=== PATIENT | female | born 1950 | race Caucasian/White ===

== ENCOUNTER → 2018-07-26 | Outpatient (CLI) | payer OTHER ==
[~2018-07-26] VITALS: Ht 177.8 cm; Wt 99.8 kg
[~2018-07-26] MED LIST: ASPIR 8181 MG PO; CALCIUM 500 +1 EAC5 PO; CORTEF5 MG PO; FLECAINIDE ACET50 M2 PO; FLORINEF ACETA0.1 MG PO; LIPITOR10 MG PO; NITROSTAT0.4 M1 SUBLING; OMEPRAZOLE40 MG PO; PROLIA60 MG/1 ML INJECTION; SYNTHROID50 MCG PO; TOPROL XL25 MG PO
--- NOTE | ~2018-07-26 | HPC ---
[facility] [address] [address] PAIN MANAGEMENT CONSULTATION Name: JESUSITA CLAYTON [facility] [id number] Admission: 07/26/18 Attend Phys: Jt Acosta DO Discharge: Date of : 50 Report #: [id number] THIS REPORT FOR: //name// CC: [facility] physician/PCP Elayne Acosta DATE OF SERVICE: 07/26/2018 CHIEF COMPLAINT: Right upper buttock and low back pain. HISTORY OF PRESENT ILLNESS: As you know, the patient is a 67-year-old female who reports longstanding history of right low back and right upper buttock pain. The patient indicates pain began in 2017. She denies specific injury or trauma that may have led to symptom occurrence. She has sought evaluation through her primary care physician, ultimately being referred to Neurosurgery of [facility] where she saw Dr. Rachel on 07/14/2018. At that visit, the patient was evaluated and determined to be suffering from right SI joint dysfunction and was subsequently referred to our clinic to try SI joint injection under fluoroscopic guidance. The patient indicates pain is constant with intermittent exacerbations. She states the pain is stabbing in sensation. She places current pain score 10/10, daily average at 10/10, worst pain has been is 10/10. The patient states that certain activities throughout the day exacerbate symptoms as do typical daily activities. She indicates hot pads and lying down tend to improve pain. She has been referred to our service by her Neurosurgery team to undergo right SI joint injection under fluoroscopic guidance to determine if symptoms could be improved. There is a possibility the patient is looking towards a fusion of the SI joint with Neurosurgery per the patient's report today. PAST MEDICAL HISTORY: 1. Hypertension. 2. Dyslipidemia. 3. Atrial fibrillation. 4. Gastroesophageal reflux disease. 5. Hypothyroidism. 6. History of myxomas. 7. Adrenal insufficiency. PAST SURGICAL HISTORY: 1. Heart surgery in 1974 and 1996 for myxoma excisions. 2. Total adrenalectomy in 1984. 3. Brain surgery in 1995. 4. Back surgery. [address] [address] PAIN MANAGEMENT CONSULTATION Name: JESUSITA CLAYTON Jodee Room #: REG DANIELA Schmidt#: [id number] Admission: 07/26/18 Attend Phys: Jt Acosta DO Discharge: Date of : 50 Report #: [id number] SOCIAL HISTORY: The patient denies tobacco, alcohol, IV or illicit drug use. She is retired out of the workforce since 10/2016. She is not receiving workmen's compensation nor is trying to obtain disability benefits. She is not in litigation in regards to pain. She is accompanied by her , present in room today. REVIEW OF SYSTEMS: Positive for hearing loss with tinnitus, right low back pain, right upper buttock pain with paresthesias, hypothyroid, gastroesophageal reflux disease, atrial fibrillation on chronic anticoagulation, adrenal insufficiency. All other review of systems negative per 12-point review of systems other than those listed in history of present illness. Pain impact score 60/70 indicating severe, near complete interference of daily activities secondary to pain. ALLERGIES: No known drug allergies. CURRENT MEDICATIONS: Aspirin 81 mg per day, calcium carbonate 1 tab per day, Florinef 0.1 mg 4 times a week, Cortef 5 mg 2 in the morning and 2 at night, Synthroid 50 mcg per day, metoprolol 25 mg 2 tabs per day, nitroglycerin 0.4 mg p.r.n. chest pain, omeprazole 40 mg per day, flecainide 50 mg per day, atorvastatin 10 mg twice a week, Prolia one injection every 6 months. IMAGING: MRI of the lumbar spine obtained on 07/20/2018 shows T12-L1, L1-L2, L2-L3 unremarkable. L3-L4, mild facet arthropathy, mild annular disk bulge, ligamentum flavum hypertrophy, flattening of ventral thecal sac, mild narrowing of the neural foramen, thecal sac measuring 1.1 cm, AP. L4-L5, circumferential disk bulge, bilateral facet arthropathy, prominent ligamentum flavum hypertrophy, flattening of the ventral thecal sac with AP diameter of 1 cm. L5-S1, degeneration of the disk, abnormal signal within the disk noted, circumferential bulging of the annulus, ligamentum flavum hypertrophy, facet hypertrophy, narrowing of the neural foramen, lateral recess thecal sac measures 1.1 cm. PQRS: The patient has osteoarthritic changes on the lumbar spine, no rheumatoid arthritis. She is placing pain intensity of 10/10. She is a fall risk, but has not had fallen in the last 3 months. She is to be on a blood thinner, but has not taken the medication in 29 days. She is treated for hypertension. She is not on chronic opioids. She has a moderate risk for opioid addiction. Pain impact score is 60/70 indicating near complete interference of daily activities secondary to pain. PHYSICAL EXAMINATION: VITAL SIGNS: Blood pressure 127/84, pulse 74, respiratory rate 16 and unlabored. The patient is 100% on room air. Height 5 feet 10 inches tall, weight 220 pounds, BMI calculated 31.6. [address] [address] PAIN MANAGEMENT CONSULTATION Name: JESUSITA CLAYTON Room #: REG CL Forets#: [id number] Admission: 07/26/18 Attend Phys: Jt Acosta DO Discharge: Date of : 50 Report #: [id number] GENERAL: Well-developed, well-nourished, well-hydrated exogenously obese 67-year-old female, appears her stated age. She is placing current pain score 10/10. HEENT: Normocephalic, atraumatic. Pupils equal, round, reactive to light. Extraocular muscles are intact. Speech is fluent. The patient deemed a fair historian. LUNGS: Clear, no wheeze, rhonchi or rales. CARDIOVASCULAR: Irregularly irregular. EXTREMITIES: Show no clubbing, no cyanosis and no edema. ABDOMEN: Soft, obese and nontender. MUSCULOSKELETAL: Lower extremity strength appears equal and symmetrical 5/5. Pain is elicited with hip flexion, knee extension on the right when compared to the left. Deep tendon reflexes 2+/4 at patella and Achilles. Babinski's negative. Kaden's negative. Straight leg raising to 60 degrees, negative bilaterally. Gait and station are normal. She is able to toe walk, heel walk and tandem gait without complication. She has palpatory tenderness over the SI joint on the right compared to the left. Deep palpation of the area causes intensification of pain. ASSESSMENT: 1. Right sacroiliac joint dysfunction. 2. Right sacroiliac joint pain. 3. Atrial fibrillation without anticoagulation. 4. Chronic intractable pain. PLAN: 1. The patient has been referred to our service by her Neurosurgery physician, Dr. Rachel, for evaluation for right SI joint dysfunction. It does appear the patient is suffering from right sacroiliac joint dysfunction based on physical exam and history provides and provocating factors that exacerbate symptoms. We discussed with the patient the treatment option for SI joint pain today. The following was discussed with the patient on treatments available. We discussed physical therapy, stretching exercise, core strengthening and a concerted effort at weight loss. We discussed medication management adding a nonsteroidal anti-inflammatory on a consistent basis along with suggestions for treatment of a low dose opioid like medication such as tramadol. We discussed intraarticular SI joint injections and ultimately surgical fusion of the sacroiliac joint. After reviewing risks and benefits of all proposed treatment options, the patient chose to undergo right sacroiliac joint injection under fluoroscopic guidance. 2. The patient was advised risks and benefits of a right sacroiliac joint injection. These risks include, but are not necessarily limited to, bleeding, bruising, infection, worsening pain, no relief of pain, also risk of temporary or permanent muscle weakness, temporary or permanent nerve damage, possible paralysis, joint destruction and . The patient [place] [address] PAIN MANAGEMENT CONSULTATION Name: JESUSITA CLAYTON Room #: REG DANIELA Schmidt#: [id number] Admission: 07/26/18 Attend Phys: Jt Acosta DO Discharge: Date of : 50 Report #: [id number] wished to proceed. 3. The patient and I had a very long discussion today about anticoagulation and the need for anticoagulation with atrial fibrillation. The patient was placed on a medication in the form of Eliquis by her human relations professor and base filler to address the waxing and waning atrial fibrillation and concern of a clot formation and ultimate stroke. The patient subsequently discontinued the Eliquis as it was costing her approximately $480-$500 per month. She did not make her human relations professor or base filler aware of this discontinuation of medication. I have taken the liberty of discussing this with the patient today. She is at extremely high risk for possible atrial clot and possible stroke. She needs to get on an anticoagulant immediately. I advised the patient to contact her human relations professor today and be placed on a new medication if necessary to continue anticoagulation. There is a strong likelihood the patient will need to return to undergo an echocardiogram to confirm that there is no clot within the left atrium before she initiates any treatment changes. I will defer to the Cardiology team to adjust her medications appropriately. She needs to be on this medication immediately. 4. We altered no medications at this time. The patient will continue current medical therapy as prior prescribed. 5. We will see the patient back in followup visit on an as-needed basis for possible next in the series of right SI joint injections. I did advise the patient if improvement is noted with the SI joint injections, but the symptoms are transient in nature, there is a likelihood the patient will need to be seen by Neurosurgery to have an SI joint fusion completed. This is the definitive treatment option if all conservative treatment options fail. 6. We wish to thank Dr. Scout Rachel for the opportunity to see the patient in consultation. We will keep you apprised of response to treatment as we address her right sacroiliac joint pain. Again, we wish to thank you for the opportunity to see the patient in consultation. By: 1212 [id number] Jt Acosta DO /nt
[2018-07-26 09:11] VITALS: BP 127/84
--- NOTE | 2018-07-26 09:25 | NUR ---
Pain Clinic Assessment: 1. History of Osteoarthritis: YES History of Rheumatoid Arthritis: 2. Height: 5 ft. 10 in. 177.8 cm. Weight: 220.0 lb. oz. 99.792 kg. Patient's BMI: 31.6 3. Vital Signs: BP: 127/84 Pulse: 74 Resp: 16 Temp: 02 Sat: 100 ECG Mon: 4. Pain Intensity: 10 5. Fall Risk: Dizziness: N Needs help standing or walking: N Fallen in the last 3 months: N Fall risk comments: 6. Patient on Blood Thinner: None 7. History of Hypertension: Y 8. Opioid Therapy greater than 6 weeks: N Opiate Contract Signed: 9. Risk Assessment Tool Provided: 10. Functional Assessment Tool: 11. Recreational Drug Use: Never Drug Type: Tobacco Use: Never Smoker Tobacco Type: Amount or Packs/day: How Many Years: Alcohol Use: Frequency: Quant:
== END | disposition home or self-care (01) ==
LOC: PAIN 06:40
DX: M53.3 Sacrococcygeal disorders, not elsewhere classified (principal); G89.29 Other chronic pain; I10 Essential (primary) hypertension; I48.91 Unspecified atrial fibrillation; E03.9 Hypothyroidism, unspecified; K21.9 Gastro-esophageal reflux disease without esophagitis; E78.5 Hyperlipidemia, unspecified; E66.09 Other obesity due to excess calories; Z98.890 Other specified postprocedural states; Z68.31 Body mass index [BMI] 31.0-31.9, adult; Z79.01 Long term (current) use of anticoagulants; Z79.899 Other long term (current) drug therapy

== ENCOUNTER → 2018-08-30 | Outpatient (CLI) | payer OTHER ==
[~2018-08-30] VITALS: Ht 177.8 cm; Wt 99.8 kg
[2018-08-30 14:28] VITALS: BP 136/91
--- NOTE | 2018-08-30 14:46 | NUR ---
Pain Clinic Assessment: 1. History of Osteoarthritis: YES History of Rheumatoid Arthritis: 2. Height: 5 ft. 10 in. 177.8 cm. Weight: 220.0 lb. oz. 99.792 kg. Patient's BMI: 31.6 3. Vital Signs: BP: 136/91 Pulse: 76 Resp: 16 Temp: 02 Sat: 100 ECG Mon: 4. Pain Intensity: 7 5. Fall Risk: Dizziness: N Needs help standing or walking: N Fallen in the last 3 months: N Fall risk comments: 6. Patient on Blood Thinner: None 7. History of Hypertension: Y 8. Opioid Therapy greater than 6 weeks: N Opiate Contract Signed: 9. Risk Assessment Tool Provided: 10. Functional Assessment Tool: 11. Recreational Drug Use: Never Drug Type: Tobacco Use: Never Smoker Tobacco Type: Amount or Packs/day: How Many Years: Alcohol Use: Frequency: Quant:
--- NOTE | 2018-09-06 07:52 | HPC ---
[facility] [place] [place] [address] PAIN MANAGEMENT CONSULTATION Name: JESUSITA CLAYTON Room #: REG [facility]#: [id number] Admission: 08/30/18 ������������������ Attend Phys: Jt Acosta DO Discharge: ������������������ Date of : 50 Report #: [id number] THIS REPORT FOR: //name// CC: [facility] physician/PCP MD Jt Teresa DATE OF SERVICE: 08/30/2018 CHIEF COMPLAINT: Right upper buttock and posterolateral thigh pain. HISTORY OF PRESENT ILLNESS: As you know, the patient is a 67-year-old female who was referred to our service by her neurosurgeon, Dr. Elayne Rachel to trial a right SI joint injection under fluoroscopic guidance. The patient underwent that injection on 07/26/2018. She reports today a return of symptoms, for which she gives a pain level of 7/10. She indicates that the injection provided about 90% improvement in overall pain. Unfortunately, her symptoms have recurred. She returns requesting next in the series of right SI joint injections in hopes of improving symptoms. ALLERGIES: No reported drug allergies. CURRENT MEDICATIONS: Aspirin, calcium carbonate, Florinef, hydrocortisone, levothyroxine, metoprolol, nitroglycerin, omeprazole, flecainide, atorvastatin and Prolia. SOCIAL HISTORY: The patient denies tobacco, alcohol, IV or illicit drug use. She is retired and has been out of work for since 10/2016, not migratory worker's compensation, accompanied by her , present in room today. IMAGING: No new imaging available. PQRS: The patient has known osteoarthritic change in the lumbar spine, no rheumatoid arthritis. She is placing pain intensity today 7/10, not a fall risk, has not had a fall in the last 3 months. She is not on blood thinners. She has history of hypertension. She is not on any chronic opioid. She has pain impact score 60/70, severe, near complete interference of daily activities secondary to pain. PHYSICAL EXAMINATION: VITAL SIGNS: Blood pressure 136/91, pulse is 76, respiratory rate 16 and unlabored. The patient is 100% on room air. Height 5 feet 10 inches tall, weighs 220 pounds, BMI calculated 31.6. GENERAL: Well-developed, well-nourished, well-hydrated 67-year-old female, appearing her stated age. Pain is rated today at around 7/10. HEENT: Normocephalic and atraumatic. Pupils equal, round, reactive to light. [address] [address] PAIN MANAGEMENT CONSULTATION Name: JESUSITA CLAYTON Room #: REG [facility]#: [id number] Admission: 08/30/18 ������������������ Attend Phys: Jt Acosta DO Discharge: ������������������ Date of : 50 Report #: [id number] Extraocular muscles are intact. EXTREMITIES: Show no clubbing, no cyanosis, no edema. MUSCULOSKELETAL: Lower extremity strength symmetrical 5/5. Pain is elicited once again with deep palpation over the right SI joint. Hip flexion, knee extension on the right also intensify buttock and posterolateral thigh pain. Patellar reflexes are symmetrical, 2+/4 as is Achilles tendon reflexes. ASSESSMENT: 1. Right sacroiliac joint dysfunction. 2. Chronic intractable pain. PLAN: 1. The patient returns today in followup visit having noted excellent benefit with the initial SI joint injection on the right side per the request of her neurosurgeon, Dr. Elayne Rachel. Unfortunately, her symptoms have begun to return. She returns now with a pain level of 7/10. She has requested a repeat right SI joint injection to be performed today. Advised the patient of the risks and benefits of this procedure. States she understood and wished to proceed. 2. No medication changes made at today's visit. The patient will continue current medical therapy as previously prescribed. 3. We will see the patient back in followup visit on an as needed basis. Discussed the possible next in the series of SI joint injections. If the patient continues to experience good benefit for long-term therapy I would recommend continuing SI joint injections. If the symptoms continue to return surgical options may be necessary to address fusion of the SI joint. We will discuss this again in followup visit depending on the efficacy of today's injection. PROCEDURE NOTE DESCRIPTION OF PROCEDURE: Right SI joint injection under fluoroscopic guidance. This is the second procedure of the first series that the patient is undergoing. After obtaining written consent, the patient was taken back to the fluoroscopy suite and placed in a prone position with a pillow under the pelvis to decrease the lumbar lordosis. The skin of the gluteal-sacral area overlying the right sacroiliac joint was prepped and draped in an aseptic fashion. A medial to lateral oblique projection allowed separation of the anterior and posterior branches of the joint space. The skin and subcutaneous tissue overlying the target site of injection was anesthetized using 3 mL of 1% lidocaine. A 22-guage needle with a 3.5 inch tip was directed into the inferior aspect of the sacroiliac joint using a posterior approach. A bent giving way at the needle hub was noted once the dorsal sacroiliac and interosseous ligaments [address] [address] PAIN MANAGEMENT CONSULTATION Name: JESUSITA CLAYTON Room #: REG CLMiky Schmidt#: [id number] Admission: 08/30/18 ������������������ Attend Phys: Jt Acosta DO Discharge: ������������������ Date of : 50 Report #: [id number] were engaged. After negative aspiration for heme, a total of 0.5 mL of Omnipaque was injected, outlining the coin-shaped inferior recess of the joint. Provocation responses consisting of intense buttock pain were negative. After negative aspiration for heme, 3 mL of solution containing 1 mL 40 mg per mL, 40 mg total triamcinolone, 2 mL bupivacaine 0.5% was slowly injected. The needle was then retracted approximately mcfp and the needle track was flushed with 1 mL of 1% lidocaine. Needle was then removed. A sterile bandage was placed over the injection site. There were no new sensory deficits present in the lower extremities. The heart rate, pulse oximetry and blood pressure were continuously monitored after the procedure. There were no apparent complications. The patient tolerated the procedure well and was carefully escorted to the recovery room in stable condition. The VAS was 7/10 before the procedure and 0/10 ten minutes after the procedure. After meeting discharge criteria, the patient was discharged home. ��������������������������������������������� <ELECTRONICALLY SIGNED> ���������������������������������������� By: Jt Acosta DO ��������������������������������������������� 09/06/18 [id number] Jt Acosta DO /nt
== END | disposition home or self-care (01) ==
LOC: PAIN 06:50
DX: M53.3 Sacrococcygeal disorders, not elsewhere classified (principal); G89.29 Other chronic pain; I10 Essential (primary) hypertension; Z79.82 Long term (current) use of aspirin; Z79.899 Other long term (current) drug therapy

== ENCOUNTER → 2018-10-18 | Outpatient (CLI) | payer OTHER ==
[~2018-10-18] VITALS: Ht 177.8 cm; Wt 99.7 kg
[~2018-10-18] MED LIST changes: +ELIQUIS5 MG PO
--- NOTE | ~2018-10-18 | HPC ---
[address] [address] PAIN MANAGEMENT CONSULTATION Name: JESUSITA CLAYTON Room #: REG [facility] Roxana#: [id number] Admission: 10/18/18 ������������������ Attend Phys: Jt Acosta DO Discharge: ������������������ Date of : 50 Report #: [id number] THIS REPORT FOR: //name// CC: [facility] physician/PCP Elayne Acosta Primary Care Physician DATE OF SERVICE: 10/18/2018 CHIEF COMPLAINT: Right buttock pain and posterolateral thigh pain. HISTORY OF PRESENT ILLNESS: As you know, the patient is a 67-year-old female referred to our service by her neurosurgeon, Dr. Elayne Rachel to undergo right SI joint injections under fluoroscopic guidance in hopes of improving pain. The patient was seen in consultation on 08/03/2018 diagnosed with a right sacroiliac joint pain. We trialled medication management initially per the patient's request. She was seen in followup visit on 08/30/2018 where she finally underwent an injection of the right sacroiliac joint. She reported with that injection 100% improvement in overall pain lasting for up to 6 weeks. She returns today in followup visit with slow and progressive return of symptoms, now placing pain anywhere from 0 to 10/10 depending on activity. She discontinued her Eliquis in preparation for today's procedure. She has been off the Eliquis for 3 days. She returns to undergo next in the series of right sacroiliac joint injections under fluoroscopic guidance in hopes of improving pain. She denies new injury or trauma that may have led to symptom recurrence. ALLERGIES: No reported drug allergies. CURRENT MEDICATIONS: Aspirin, calcium carbonate, Florinef, hydrocortisone, levothyroxine, metoprolol, nitroglycerin, omeprazole, flecainide, atorvastatin, Prolia and Eliquis. SOCIAL HISTORY: The patient denies tobacco, alcohol or IV illicit drug use. She is retired. She has been out of work since 10/2016, not receiving workmen's compensation, accompanied by her present in room today. IMAGING: No new imaging available. 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 No rheumatoid arthritis, placing pain anywhere from 0-10/10 depending on activity. She is not a fall risk and has not had a fall in the last 3 months. She is on blood thinners, but discontinued the medication three days prior to undergo this injection. She has a history and treatment of hypertension, not on chronic opioids. She is placing pain impact score at 60/70, near complete interference of daily activities secondary to pain. [address] [address] PAIN MANAGEMENT CONSULTATION Name: JESUSITA CLAYTON Room #: REG [facility].#: [id number] Admission: 10/18/18 ������������������ Attend Phys: Jt Acosta DO Discharge: ������������������ Date of : 50 Report #: [id number] PHYSICAL EXAMINATION: VITAL SIGNS: Blood pressure 141/92, pulse 74, respiratory rate 16 and unlabored. The patient is 98% on room air. Height 5 feet 10 inches tall, weight 219.8 pounds, BMI calculated 31.5. GENERAL: Well-developed, well-nourished, well-hydrated 67-year-old female appearing her stated age, placing current pain score anywhere from 0-10/10. HEENT: Normocephalic, atraumatic. Pupils equal, round, reactive to light. Speech fluent. EXTREMITIES: Show no clubbing, no cyanosis, and no edema. MUSCULOSKELETAL: Lower extremity strength is symmetrical 5/5, muscle bulk and tone appears symmetrical in comparing left lower extremity to right. Seated straight leg raising negative. Supine straight leg raising negative. Nuzhat's test is negative. Modified Gaenslen's positive for axial low back pain. Deep palpation over the sacroiliac joint causes intensification of pain on the right, negative left. Sacral compression causes increased pain on the right consistent with right SI joint symptoms. ASSESSMENT: 1. Right sacroiliac joint dysfunction. 2. Chronic intractable pain. PLAN: 1. The patient returns today in followup visit having noted near 100% improvement in overall pain with the right sacroiliac joint injection provided in August and this lasted for up to 6 weeks. She returns today in followup visit requesting to undergo next in the series of right sacroiliac joint injections to address the patient's SI joint dysfunction. She has been advised risks and benefits of the procedure, states understood and wished to proceed. 2. No medication changes made at today's visit. The patient will continue current medical therapy as previously prescribed. 3. We will see the patient back in followup visit on an as needed basis for next in the series of SI joint injections. PROCEDURE NOTE DESCRIPTION OF PROCEDURE: Right sacroiliac joint injection under fluoroscopic guidance. This is the third procedure of the first series that the patient is undergoing. After obtaining written consent, the patient was taken back to the fluoroscopy suite and placed in a prone position with a pillow under the pelvis to decrease the lumbar lordosis. The skin of the gluteal-sacral area overlying the right sacroiliac joint was prepped and draped in an aseptic fashion. [address] [address] PAIN MANAGEMENT CONSULTATION Name: JESUSITA CLAYTON Room #: REG [facility]#: [id number] Admission: 10/18/18 ������������������ Attend Phys: Jt Acosta DO Discharge: ������������������ Date of : 50 Report #: [id number] A medial to lateral oblique projection allowed separation of the anterior and posterior branches of the joint space. The skin and subcutaneous tissue overlying the target site of injection was anesthetized using 3 mL of 1% lidocaine. A 22-gauge 3-1/2 inch needle with a bent tip was directed into the inferior aspect of the sacroiliac joint using a posterior approach. A ____ at the needle hub was noted once the dorsal sacroiliac and interosseous ligaments were engaged. After negative aspiration for heme, a total of 0.4 mL of Omnipaque was injected, outlining the coin-shaped inferior recess of the joint. Provocation responses consisting of intense buttock pain were negative. After negative aspiration for heme, 3 mL of a solution containing 1 mL 40 mg/mL, 40 mg total triamcinolone and 2 mL of bupivacaine 0.5% was slowly injected. The needle was then retracted approximately usp and the needle track was flushed with 1 mL of lidocaine 1%. Needle was then removed. A sterile bandage was placed over the injection site. There were no new sensory deficits present in the lower extremities. The heart rate, pulse oximetry and blood pressure were continuously monitored after the procedure. There were no apparent complications. The patient tolerated the procedure well and was carefully escorted to the recovery room in stable condition. The VAS was 0-10/10 before the procedure and 0/10 ten minutes after the procedure. After meeting discharge criteria, the patient was discharged home. ��������������������������������������������� ���������������������������������������� By: ��������������������������������������������� [id number] Jt Acosta DO /nt
[2018-10-18 12:48] VITALS: BP 141/92
--- NOTE | 2018-10-18 13:01 | NUR ---
Pain Clinic Assessment: 1. History of Osteoarthritis: YES History of Rheumatoid Arthritis: 2. Height: 5 ft. 10 in. 177.8 cm. Weight: 219.8 lb. oz. 99.701 kg. Patient's BMI: 31.5 3. Vital Signs: BP: 141/92 Pulse: 74 Resp: 16 Temp: 02 Sat: 98 ECG Mon: 4. Pain Intensity: 0-10 5. Fall Risk: Dizziness: N Needs help standing or walking: N Fallen in the last 3 months: N Fall risk comments: 6. Patient on Blood Thinner: None 7. History of Hypertension: Y 8. Opioid Therapy greater than 6 weeks: N Opiate Contract Signed: 9. Risk Assessment Tool Provided: 10. Functional Assessment Tool: 60 11. Recreational Drug Use: Never Drug Type: Tobacco Use: Never Smoker Tobacco Type: Amount or Packs/day: How Many Years: Alcohol Use: Frequency: Quant:
== END | disposition home or self-care (01) ==
LOC: PAIN 07:05
DX: M53.3 Sacrococcygeal disorders, not elsewhere classified (principal); G89.29 Other chronic pain; I10 Essential (primary) hypertension; Z79.82 Long term (current) use of aspirin; Z79.899 Other long term (current) drug therapy

== ENCOUNTER → 2020-01-10 | Outpatient (CLI) | payer OTHER ==
[~2020-01-10] VITALS: Ht 175.3 cm; Wt 107.5 kg
--- NOTE | ~2020-01-10 | HPC ---
[facility] [address] [place] [address] PAIN MANAGEMENT CONSULTATION Name: JESUSITA CLAYTON Room #: REG [facility].#: [id number] Admission: 01/10/20 Attend Phys: Jt Acosta DO Discharge: Date of : 50 Report #: [id number] THIS REPORT FOR: cc: [facility] - No family physician/PCP [facility] - No family physician/PCP Jt Acosta DO ~ CC: Dr. Elayne Rachel [facility] physician/PCP Jt Acosta DATE OF SERVICE: 01/10/2020 CHIEF COMPLAINT: Bilateral upper buttock pain. HISTORY OF PRESENT ILLNESS: As you know, the patient is a 69-year-old female referred back to our clinic for bilateral SI joint dysfunction. She has done very well with previous intra-articular SI joint injections in the past. She underwent procedures 06/2018, again in August and a repeated series in September with good effects. Unfortunately, her symptoms have begun to return. No inciting injury or trauma. She returns today in followup visit reporting a pain score of 5/10. She denies new injury or trauma that may have led to symptom reoccurrence. She states pain is exacerbated with climbing stairs, doing laundry; improves with lying down, cold compresses, heat compresses and previous SI joint injections. She returns today for bilateral SI joint injections per the request of her neurosurgeon. ALLERGIES: No known drug allergies. CURRENT MEDICATIONS: Aspirin, calcium carbonate, Florinef, hydrocortisone, levothyroxine, metoprolol, nitroglycerin, omeprazole, flecainide, atorvastatin, Prolia and Eliquis. SOCIAL HISTORY: The patient denies tobacco, alcohol, IV or illicit drug use. She is retired, retired years ago, accompanied by her present in room today. IMAGING: No new imaging available. PQRS: The patient has known arthritic changes of the lumbar spine, bilateral SI joints and bilateral hips. No rheumatoid arthritis. She is placing her current pain score at 5/10. She is not a fall risk nor has she had a fall in last 3 months. She is on Eliquis and has discontinued in preparation for today's procedure. She is treated for hypertension. She is not on chronic opioids, has a low opioid addiction potential. Pain impact score 60/70 near complete interference of daily activities secondary to pain. [address] [address] PAIN MANAGEMENT CONSULTATION Name: JESUSITA CLAYTON Room #: REG [facility]#: [id number] Admission: 01/10/20 Attend Phys: Jt Acosta DO Discharge: Date of : 50 Report #: [id number] PHYSICAL EXAMINATION: VITAL SIGNS: Blood pressure 137/80, pulse 77, respiratory rate 16 and unlabored. The patient is 98% on room air. Height 5 feet 9 inches tall, weight 237 pounds, BMI calculated 35.0. GENERAL: Well-developed, well-nourished, well-hydrated exogenously obese 69-year-old female appearing stated age, pain is rated around 5/10. HEENT: Normocephalic, atraumatic. Pupils equal, round and reactive. Speech fluent. EXTREMITIES: Show no clubbing, no cyanosis, no edema. MUSCULOSKELETAL: The patient once again has palpatory tenderness over the bilateral SI joints, right greater than left. Seated straight leg raising negative. Supine straight leg raising negative. Nuzhat's test is negative for intrinsic hip pathology. ASSESSMENT: 1. Bilateral sacroiliac joint dysfunction, right greater than left. 2. Chronic intractable pain. PLAN: 1. The patient returns today in followup visit to undergo bilateral SI joint injections under fluoroscopic guidance in hopes of improving pain. The patient has been advised of the risks and the benefits of bilateral SI joint injections. These risks include but are not necessarily limited to bleeding, bruising, infection, worsening of pain, no relief of pain, temporary or permanent muscle weakness, temporary or permanent nerve damage, possible joint destruction and . The patient states understood and wished to proceed. 2. No medication changes made at today's visit. The patient will continue current medical therapy as prior prescribed. 3. The patient will return to our clinic on an as needed basis possible next in the series of SI joint injections. PROCEDURE NOTE DESCRIPTION OF PROCEDURE: Bilateral SI joint injections under fluoroscopic guidance. After obtaining written consent, the patient was taken back to fluoroscopy suite, placed in prone position with pillow under the pelvis to decrease lumbar lordosis. Skin overlying the gluteal sacral area was then prepped and draped in aseptic fashion. A medial to lateral oblique projection allowed separation of the anterior and posterior branches of the joint space on the right to be visualized. Skin and subcutaneous tissue overlying target site of injection was anesthetized with 3 mL of 1% lidocaine. A 22-gauge 3-1/2 inch spinal needle with bent tip was directed towards the inferior aspect of the sacroiliac joint using a posterior [facility] [address] [place] [address] PAIN MANAGEMENT CONSULTATION Name: JESUSITA CLAYTON Room #: REG [facility]#: [id number] Admission: 01/10/20 Attend Phys: Jt Acosta DO Discharge: Date of : 50 Report #: [id number] approach. A "giving away" at the needle hub was noted once the dorsal sacroiliac and interosseous ligaments were engaged. After negative aspiration for heme, a total of 0.3 mL of Omnipaque was injected. This outlined the inferior recess of the joint. After negative aspiration for heme, 3 mL of a solution containing 1 mL 40 mg per mL, 40 mg total triamcinolone along with 2 mL bupivacaine 0.5% injected slowly. Needle was retracted approximately half way, flushed with 1 mL of 1% lidocaine and removed. Attention was then directed to the left side. The image intensifier was then brought into position and a medial to lateral oblique projection allowed separation of the anterior and posterior branches of the joint space to be visualized. The skin and subcutaneous tissue overlying the target site of injection was anesthetized with 3 mL of 1% lidocaine. A 22-gauge 3-1/2 inch spinal needle with bent tip was directed towards the inferior aspect of the sacroiliac joint using a posterior approach. A "giving away" at the needle hub was noted once the dorsal sacroiliac and interosseous ligaments were engaged. After negative aspiration for heme, a total of 0.4 mL of Omnipaque was injected. This outlined the inferior recess of the joint. After negative aspiration for heme, 3 mL of a solution containing 1 mL 40 mg per mL, 40 mg total triamcinolone along with 2 mL bupivacaine 0.5% injected slowly. Needle retracted mcc, flushed with 1 mL of 1% lidocaine and removed. Sterile bandage placed over injection site. No new motor deficits present in lower extremity following procedure. The patient tolerated procedure well, carefully escorted to recovery room in stable condition. No apparent complications. After meeting discharge criteria, the patient discharged home. By: [id number] Jt Acosta DO /nt
[2020-01-10 13:58] VITALS: BP 137/80
--- NOTE | 2020-01-10 14:07 | NUR ---
Pain Clinic Assessment: 1. History of Osteoarthritis: YES History of Rheumatoid Arthritis: Not Applicable 2. Height: 5 ft. 9 in. 175.3 cm. Weight: 237.0 lb. oz. 107.503 kg. Patient's BMI: 35.0 3. Vital Signs: BP: 137/80 Pulse: 77 Resp: 16 Temp: 02 Sat: 98 ECG Mon: 4. Pain Intensity: 5 5. Fall Risk: Dizziness: N Needs help standing or walking: N Fallen in the last 3 months: Y Fall risk comments: 6. Patient on Blood Thinner: ELIQUIS 7. History of Hypertension: Y 8. Opioid Therapy greater than 6 weeks: N Opiate Contract Signed: 9. Risk Assessment Tool Provided: LOW- 10. Functional Assessment Tool: 60/70 11. Recreational Drug Use: Never Drug Type: Tobacco Use: Never Smoker Tobacco Type: Amount or Packs/day: How Many Years: Alcohol Use: No Frequency: Quant:
--- NOTE | 2020-01-10 14:07 | NUR ---
Document as much information as known. If only year is known, type in year only. DO NOT type in UNKNOWN or NEVER!
== END | disposition home or self-care (01) ==
LOC: PAIN 01-09 14:48
PROVIDERS: ATTEND Anesthesiology Pain Medicine
DX: M53.3 Sacrococcygeal disorders, not elsewhere classified (principal); G89.29 Other chronic pain; I10 Essential (primary) hypertension; M19.90 Unspecified osteoarthritis, unspecified site; Z98.890 Other specified postprocedural states; Z79.899 Other long term (current) drug therapy; Z79.01 Long term (current) use of anticoagulants

== ENCOUNTER → 2020-06-12 | Outpatient (CLI) | payer OTHER ==
[~2020-06-12] VITALS: Ht 177.8 cm; Wt 111.5 kg
[~2020-06-12] MED LIST changes: +COZAAR 25 MG TA25 M1 PO
--- NOTE | ~2020-06-12 | HPC ---
[facility] [address] PAIN MANAGEMENT CONSULTATION Name: JESUSITA CLAYTON Room #: REG [facility].#: [id number] Admission: 06/12/20 Attend Phys: Jt Acosta DO Discharge: Date of : 50 Report #: [id number] THIS REPORT FOR: cc: Ed Ramsey MD, Andrea A. MD Johnson, James E. DO ~ DATE OF SERVICE: 06/12/2020 CHIEF COMPLAINT: Bilateral upper buttock and low back pain. HISTORY OF PRESENT ILLNESS: As you know, the patient is a very pleasant 69-year-old female referred to our clinic for bilateral SI joint dysfunction. She has undergone intermittent injections with excellent benefit, the most recent SI joint injections provided the patient with improvement in symptoms of about 100%, but unfortunately, her symptoms slowly returned. She returns today in followup visit, reporting a pain score of about 6/10 up to 10/10 with activity involving the bilateral upper buttock and low back symptoms consistent with SI joint dysfunction. She returns today for bilateral SI joint injections under fluoroscopic guidance. ALLERGIES: No known drug allergies. CURRENT MEDICATIONS: Aspirin, calcium carbonate, Florinef, hydrocortisone, levothyroxine, metoprolol, nitroglycerin, omeprazole, flecainide, atorvastatin, Prolia and Eliquis. SOCIAL HISTORY: The patient denies tobacco, alcohol, IV or illicit drug use. She is retired, retired years ago, accompanied by her present in room today. IMAGING: No new imaging available. PQRS: The patient has known arthritic changes of the lumbar spine, bilateral SI joints, bilateral hips. No rheumatoid arthritis based on the patient's history. She is placing pain intensity anywhere from 6-10/10. She is not at a fall risk, has not had a fall in last 3 months. She is on blood thinners, but has discontinued the medication 3 days prior, so that she could undergo the injections requested today. She is treated for hypertension. She is not on opioids, has a low opiate addiction potential. Pain impact 60 of 70, indicating severe near complete interference of daily activities secondary to pain. PHYSICAL EXAMINATION: VITAL SIGNS: Blood pressure 135/77, pulse 70, respiratory rate 16 and unlabored. She is 98% on room air. Height 5 feet 10 inches tall, weight 245.8 pounds, BMI calculated 35.3. GENERAL: Well-developed, well-nourished, well-hydrated exogenously obese [address] [address] PAIN MANAGEMENT CONSULTATION Name: JESUSITA CLAYTON Room #: REG [facility] [id number] Admission: 06/12/20 Attend Phys: Jt Acosta DO Discharge: Date of : 50 Report #: [id number] 69-year-old female appearing stated age, pain is rated today 6-10/10. HEENT: Normocephalic, atraumatic. Pupils equal, round. Extraocular muscles are intact. The patient is wearing a mask in compliance with COVID-19 regulations. EXTREMITIES: Showed no clubbing, no cyanosis. No appreciable edema. MUSCULOSKELETAL: Tenderness to palpation is once again noted over the bilateral SI joints. Right is much more intense than the left with deep palpation in area causes symptoms typical for the patient with sitting and ambulation. Seated straight leg raising negative. Supine straight leg raising negative. Nuzhat's test is positive only for SI joint pain on the right, negative left. ASSESSMENT: 1. Bilateral sacroiliac joint pain. 2. Chronic intractable pain. PLAN: 1. The patient returns today in followup visit, requesting to undergo bilateral SI joint injections. She received 100% improvement in overall pain with prior SI joint injections done in December. Unfortunately, her symptoms have recurred. 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 Otherwise, she has no known injury or trauma that led to symptom reoccurrence. She returns today for SI joint injections. 2. No medication changes made at today's visit. The patient will continue current medical therapy as prior prescribed. 3. We will see the patient back in followup visit on an as needed basis for repeating bilateral SI joint injections under fluoroscopic guidance. PROCEDURE NOTE DESCRIPTION OF PROCEDURE: Bilateral SI joint injections under fluoroscopic guidance. After obtaining written consent, the patient was taken back to fluoroscopy suite, placed in prone position with pillow under the pelvis to decrease lumbar lordosis. Skin overlying the gluteal sacral area was then prepped and draped in aseptic fashion. A medial to lateral oblique projection allowed separation of the anterior and posterior branches of the joint spaces on the right to be visualized. Skin and subcutaneous tissue overlying target site injection anesthetized with 2 mL of 1% lidocaine. A 22-gauge 3-1/2 inch spinal needle with bent tip was then directed towards the inferior aspect of the sacroiliac joint using a posterior approach. A "giving away" at the needle hub was noted once the dorsal sacroiliac and interosseous ligaments were engaged. After negative aspiration for heme, a total of 0.2 mL of Omnipaque injected. This outlined the inferior recess of the [address] [address] PAIN MANAGEMENT CONSULTATION Name: JESUSITA CLAYTON [id number] Admission: 06/12/20 Attend Phys: Jt Acosta DO Discharge: Date of : 50 Report #: [id number] joint. After negative aspiration for heme, 3 mL of solution containing 1 mL 40 mg per mL, 40 mg total triamcinolone along with 2 mL bupivacaine 0.5% injected slowly. Needle retracted assisted, flushed with 1 mL of 1% lidocaine and then removed. Our attention was then directed to the left side. Image intensifier was then brought into position over the left SI joint and a medial to lateral oblique projection was obtained, which allowed us to confirm the anterior and posterior branches of the joint space. The skin and subcutaneous tissue overlying target site injection was then anesthetized with 3 mL of 1% lidocaine. A 22-gauge 3-1/2 inch spinal needle with bent tip was then directed to the inferior aspect of the sacroiliac joint using a posterior approach. A "giving away" at the needle hub was noted once the dorsal sacroiliac and interosseous ligaments were engaged. After negative aspiration for heme, a total of 0.2 mL of Omnipaque injected. There was an outline of the inferior recess of the joint noted with injection. After negative aspiration for heme, 3 mL of a solution containing 1 mL 40 mg per mL, 40 mg total triamcinolone and 2 mL of bupivacaine 0.5% was injected slowly. Needle then retracted assisted, flushed with 1 mL of 1% lidocaine and then removed. Sterile bandages were placed over each of the injection sites. The patient tolerated procedure well, carefully escorted to recovery room in stable condition. No apparent complications. After meeting discharge criteria, the patient discharged home. By: [id number] Jt Acosta DO /nt
[2020-06-12 14:35] VITALS: BP 135/77
--- NOTE | 2020-06-12 15:10 | NUR ---
Pain Clinic Assessment: 1. History of Osteoarthritis: YES History of Rheumatoid Arthritis: Not Applicable 2. Height: 5 ft. 10 in. 177.8 cm. Weight: 245.8 lb. oz. 111.494 kg. Patient's BMI: 35.3 3. Vital Signs: BP: 135/77 Pulse: 70 Resp: 16 Temp: 02 Sat: 98 ECG Mon: 4. Pain Intensity: 6 NOW 10 AT WORSE 5. Fall Risk: Dizziness: N Needs help standing or walking: N Fallen in the last 3 months: N Fall risk comments: 6. Patient on Blood Thinner: ARVINDQUIS 7. History of Hypertension: Y 8. Opioid Therapy greater than 6 weeks: N Opiate Contract Signed: 9. Risk Assessment Tool Provided: LOW- 10. Functional Assessment Tool: 60/70 11. Recreational Drug Use: Never Drug Type: Tobacco Use: Never Smoker Tobacco Type: Amount or Packs/day: How Many Years: Alcohol Use: No Frequency: Quant:
== END | disposition home or self-care (01) ==
LOC: PAIN 07:02
PROVIDERS: ATTEND Anesthesiology Pain Medicine
DX: M53.3 Sacrococcygeal disorders, not elsewhere classified (principal); G89.29 Other chronic pain; I10 Essential (primary) hypertension; M19.90 Unspecified osteoarthritis, unspecified site; Z98.890 Other specified postprocedural states; Z79.899 Other long term (current) drug therapy; Z79.01 Long term (current) use of anticoagulants
CPT/HCPCS: G0260